=== PATIENT | male | born 1970 | race Caucasian/White ===

== ENCOUNTER 2023-04-19 13:08 | Emergency (ER) | payer OTHER ==
[~2023-04-19] VITALS: Ht 165.1 cm; Wt 95.5 kg
[~2023-04-19 13:08] MED LIST: ALBU8HFA4 IH
[2023-04-19 13:18] VITALS: TEMP 97.9
[2023-04-19] MEDS ORDERED: CLIN-142 PO (14:37)
[2023-04-19 14:41] VITALS: BP 152/78; PULSE 92; RESP 16
== END 2023-04-19 14:44 | disposition home or self-care (01) ==
LOC: EMS 13:32
DX: L03.116 Cellulitis of left lower limb (principal); J45.909 Unspecified asthma, uncomplicated
CPT/HCPCS: 99283; Z7502